=== PATIENT | male | born 1935 | race Caucasian/White ===

== ENCOUNTER 2022-08-06 08:51 | Emergency (ER) | payer MEDICARE, BC ==
[2022-08-06] MEDS ORDERED: Aspirin 81 MG Tab.Chew PO ONE (09:16)
[2022-08-06 10:05] LABS: ESTIMATED GFR 66 mL/min (>60)
[2022-08-06 10:12] LABS: TROPONIN I HIGH SENSITIVITY 1347.6 pg/mL (<=60.3)
[2022-08-06] MEDS ORDERED: Morphine 2 MG/ML SYRINGE IVPUSH ONE (10:21)
[2022-08-06] MEDS ORDERED: Heparin Sodium 5,000 Units/ML Vial IVPUSH ONE (10:32)
[2022-08-06] MEDS ORDERED: Nitroglycerin 0.4 MG Tab.SL SL ONE (10:40)
[2022-08-06] MEDS ORDERED: Sodium Chloride 0.9% 1,000 ML IV SCH (10:45)
[2022-08-06] MEDS ORDERED: Heparin Sodium/D5W 25,000 UNITS/500 ML BAG IV SCH (10:45)
== END 2022-08-06 11:47 ==
LOC: JP.ED 08:51
DX: I21.4 Non-ST elevation (NSTEMI) myocardial infarction (principal); I44.0 Atrioventricular block, first degree; I10 Essential (primary) hypertension; Z88.8 Allergy status to other drugs, medicaments and biological substances; Z79.899 Other long term (current) drug therapy; Z20.822 Contact with and (suspected) exposure to COVID-19
CPT/HCPCS: 36415; 71046; 80053; 84484; 85025; 85610; 85730; 93005; 96365; 99285; A9270; J1644; J7030; U0002